=== PATIENT | male | born 1995 | race Two or more races ===

== ENCOUNTER 2019-09-12 08:31 | Emergency (ER) | payer MEDICAID, OTHER ==
[~2019-09-12] VITALS: Ht 185.4 cm; Wt 104.3 kg
[2019-09-12 08:34] VITALS: BP 146/94
== END 2019-09-12 10:10 | disposition home or self-care (01) ==
LOC: ER 08:31
DX: N20.0 Calculus of kidney (principal); K82.8 Other specified diseases of gallbladder; R31.9 Hematuria, unspecified
CPT/HCPCS: 74176; 81002

== ENCOUNTER 2020-07-22 20:30 | Emergency (ER) | payer MEDICAID ==
[~2020-07-22] VITALS: Ht 185.4 cm; Wt 104.3 kg
[2020-07-22 21:25] LABS: Urine Bacteria NONE SEEN /hpf (None Seen); Urine Blood 3+ /uL (Negative); Urine Mucus FEW (None Seen); Urine Specific Gravity 1.014 (1.001-1.035); Urine WBC 5 /hpf (0 - 3)
[2020-07-22 22:08] LABS: Basophils # (auto) 0.1 10 ^3/uL (0-0.2); Eosinophils # (auto) 0.1 10 ^3/uL (0-0.8); Eosinophils % (auto) 1.6 % (0.0-7.0); Hematocrit 46.8 % (41.0-53.0); Hemoglobin 15.8 g/dL (13.5-17.5); Lymphocytes # (auto) 2.6 10 ^3/uL (0.4-5.4); Lymphocytes % (auto) 32.6 % (10.0-50.0); Mean Corpuscular Hemoglobin 32.1 pg (28.0-32.0); Mean Corpuscular Hgb Conc. 33.8 g/dL (32.0-36.0); Monocytes # (auto) 0.6 10 ^3/uL (0-1.3); Neutrophils # (auto) 4.5 10 ^3/uL (1.6-8.6); Neutrophils % (auto) 56.8 % (37.0-80.0); Nucleated Red Blood Cells % 0.1 %; Platelet Count (auto) 241 10^3/uL (140-450); Red Blood Cells 4.92 10^6/uL (4.5-5.90); Red Cell Distribution Width 13.6 % (11.8-14.3); White Blood Cell 7.9 10^3/uL (4.4-10.8)
[2020-07-22 22:25] LABS: INR 1.03 (0.9-1.15); Partial Thromboplastin Time 26.8 sec (23.0-31.2)
[2020-07-22 22:27] LABS: Albumin 4.4 g/dL (3.4-5.0); Calcium 8.8 mg/dL (8.5-10.1)
[2020-07-22 22:30] LABS: Bilirubin, Total 0.4 mg/dL (0.2-1.0); Total Protein 7.8 g/dL (6.4-8.2)
[2020-07-22 23:30] VITALS: BP 148/98
== END 2020-07-22 23:50 | disposition home or self-care (01) ==
LOC: ER 20:33
DX: N20.2 Calculus of kidney with calculus of ureter (principal); N30.80 Other cystitis without hematuria
CPT/HCPCS: 36415; 74176; 80053; 81001; 85025; 85610; 85730